=== PATIENT | male | born 1935 | race Caucasian/White ===

== ENCOUNTER 2016-09-16 10:42 | Inpatient (IN) | payer OTHER ==
--- NOTE | ~2016-09-16 | HP ---
History And Physical [place] [id number] [facility] [place]. [address] NAME: SANDRA GRAMAJO : 35 STATUS : ADM IN [facility]#: [id number] AGE: 80 ADM/REG DATE : 09/16/16 MR#: [id number] REPORT SERV DATE: 09/16/16 DICTATED BY: ABIGAIL QUIROZ DATE: 09/16/16 REPORT STATUS : Draft TRANSCRIBED BY: MODL DATE: 09/16/16 DATE OF ADMISSION: 09/16/2016 ADMISSION DIAGNOSES: Acute respiratory failure with septic shock and acute kidney injury and lactic acidosis. CHIEF COMPLAINT: Unable to obtain due to the patient's current medical status. HISTORY OF PRESENT ILLNESS: Mr. Gramajo is an 80-year-old gentleman with a past medical history of hypertension, who was brought to the emergency room and in the process was intubated. EMS was called to the house. At the time of my evaluation, family was not at the bedside. History was obtained from the emergency room physician and nursing staff. The patient was apparently found down, not breathing well and required mechanical ventilation. The patient was initially having an adequate blood pressure, however, he then had blood pressures in the 60s. The patient required central line insertion and infusion of normal saline to help with blood pressure support. He is cachectic. According to the son, per report, the patient has been this way for around two years. He has had adequate oral intake. The patient has a fungating mass of the left upper arm, which has been growing over the last eight months. This is a size of a tennis ball. The patient has been adamant that he does not want to have this evaluated and did not want to see doctors over the past while. According to the nursing staff, the patient has not wanted to see physicians in general and did not want to have workup. There was even per report discussion in the last several days as he has become ill that he did not want to go to the emergency room. PAST MEDICAL HISTORY: Hypertension. HOME MEDICATIONS: Vitamin C. ALLERGIES: NO KNOWN DRUG ALLERGIES. SOCIAL HISTORY: The patient currently lives at home, has a . Daughter currently has breast cancer. Son has been at the house and has been managing his father's care per report. He has done a very good job with the limitations according to the nursing staff that they heard that he has not wanted to see physicians, but has required care. The patient has lost the ability to walk and transfer on his own, for which the son and family have been helping him with his activities of daily living. FAMILY HISTORY: Unable to obtain currently. REVIEW OF SYSTEMS: Unable to obtain. PHYSICAL EXAMINATION: VITAL SIGNS: Currently hypothermic, blood pressure is in the 90s systolic, respiratory rate is set at 16, heart rate is around 132. GENERAL: The patient is cachectic, moving his upper extremities, mildly agitated. History And Physical [address] [address] NAME: SANDRA GRAMAJO : 35 STATUS : ADM IN [facility]#: [id number] AGE: 80 ADM/REG DATE : 09/16/16 MR#: [id number] REPORT SERV DATE: 09/16/16 DICTATED BY: ABIGAIL QUIROZ DATE: 09/16/16 REPORT STATUS : Draft TRANSCRIBED BY: MODBrittany DATE: 09/16/16 HEENT: No JVD is noted. Central line is inserted. PULMONARY: Clear to auscultation bilaterally. CARDIAC: Tachycardia, no murmurs. ABDOMEN: Abdomen is soft, nontender, nondistended. EXTREMITIES: The patient has a large fungating mass coming up from the left arm. He has other areas where there is wounds and a left lower extremity wound, which has dressings on. No sacral decubitus ulcers per nursing report. The wounds are quite small, other than the fungating mass and the one in the left lower lobe, which is about a quarter size. LABORATORY EXAMINATION: White blood cell count 15.8, hemoglobin 9.5, platelet count 314. INR 1.3. Procalcitonin 13.6. Chloride 113. Bicarbonate 19. Lactate 8.3, increasing to 8.7. Creatinine 1.63. Albumin 1.5. AST 56. BNP 1149. Troponin 0.06. TSH 52. Arterial blood gas shows a pH of 7.26, pCO2 of 32. IMAGING DATA: Chest x-ray shows blunting of the left costophrenic angle. 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 ASSESSMENT AND PLAN: Mr. Gramajo is an 80-year-old gentleman with a past medical history of clear failure to thrive, acute onset of septic shock, metabolic acidosis with kidney failure and lactic acidosis, findings of severe atherosclerotic disease of his aorta and most definitely coronary artery disease and probably congestive heart failure with an elevated BNP. He is also hypothyroid and currently has metabolic acidosis with shock and sepsis. 1. Acute hypoxic respiratory failure: The patient is currently on mechanical ventilation. We will continue CMV mode of mechanical ventilation. 2. Septic shock: Cultures have been drawn. The patient has received IV fluids and is currently having IV fluids at 100 mL an hour. The patient is on cefepime. 3. Acute kidney injury: The patient has a creatinine of 1.6, however, due to his level of protein malnourishment and loss of muscle mass, this is most definitely significant. No currently hyperkalemia, however, bicarbonate is dropping and we will start a bicarbonate drip. 4. Hypoalbuminemia: Most likely due to protein malnutrition. According to the family, the patient has good p.o. intake, concern of the possible neoplastic process in the arm with possible systemic disease. This is most likely chronic in nature. 5. Coronary artery disease: At this moment in time, cannot start a beta-rosa therapy. We will start aspirin and is on subcutaneous heparin. No benefit at this moment time for statin therapies. We will continue to check troponins. 6. Hypothyroidism: Currently have started IV Synthroid 125 mcg daily. 7. Lactic acidosis: The patient's blood pressure has been resuscitated. Lactate is worsening, concern of ischemic colitis is of great concern in this patient. We will continue to follow. 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 9. Prophylaxis: PPI, subcutaneous heparin. History And Physical [address] [address] NAME: SANDRA GRAMAJO Chantal : 35 STATUS : ADM IN [facility]#: [id number] AGE: 80 ADM/REG DATE : 09/16/16 MR#: [id number] REPORT SERV DATE: 09/16/16 DICTATED BY: ABIGAIL QUIROZ DATE: 09/16/16 REPORT STATUS : Draft TRANSCRIBED BY: MODL DATE: 09/16/16 10.Goals of care: Family meeting was conducted with the son and telephone call to the other son was done. At this moment in time, the patient remains in full code, further discussions regarding the patient's wishes and prognosis shall continue throughout the ICU stay. HFQ/MODL Abigail Quiroz MD / [id number] CC: MD Yamil Yee M.D.
--- NOTE | ~2016-09-16 | CN ---
Consultation Report [facility] [address] [facility] [place]. [address] NAME: SANDRA GRAMAJO : 35 STATUS : ADM IN [facility]#: [id number] AGE: 80 ADM/REG DATE : 09/16/16 MR#: [id number] REPORT SERV DATE: 09/21/16 DICTATED BY: J CARLOS WANG DATE: 09/20/16 REPORT STATUS : Draft TRANSCRIBED BY: MODBrittany DATE: 09/20/16 CONSULTATION DATE OF CONSULTATION: 09/20/2016 REASON FOR CONSULTATION: Evaluation for left lower extremity ischemia. BRIEF HISTORY: The patient is an 80-year-old gentleman with a past medical history significant for hypertension and tobacco abuse, who does not routinely seek medical care. He was in his usual state of health until he was found to have an altered mental status and abnormal breathing by his son, who lives with him. He came to the hospital for evaluation and treatment. Here, he was found to have acute kidney injury and respiratory failure. He was intubated and has been started on dopamine for bradycardia. He had lactic acidosis that was treated with resuscitation. With all this, his renal function has improved. Having said that, his left lower extremity was noted to be ischemic. I was consulted for evaluation and treatment. At baseline, the patient's son says that the patient does not routinely seek medical care. He has known about an arm mass on his right arm, but has ignored it because he does not like seeing doctors or coming to the hospital. He has been extremely weak and essentially nonambulatory for the past few months. He can get up to transfer, but often falls. PAST MEDICAL HISTORY: As above. SURGICAL HISTORY: Unknown. SOCIAL HISTORY: He has a strong history of tobacco abuse. He lives at home with his and son. FAMILY HISTORY: Significant for cancers. REVIEW OF SYSTEMS: A review of systems could not be performed as the patient is intubated and sedated. MEDICATIONS: Documented on the chart and were reviewed. ALLERGIES: DOCUMENTED ON THE CHART AND WERE REVIEWED. PHYSICAL EXAMINATION: VITAL SIGNS: Documented on the chart and were reviewed. GENERAL: The patient is sedated, in no apparent distress. HEAD AND NECK: Benign. HEART: Bradycardic and has a slightly irregular rhythm. LUNGS: Coarse. He is on the ventilator. Consultation Report [facility] [address] [place]. [address] NAME: SANDRA GRAMAJO : 35 STATUS : ADM IN PAT#: [id number] AGE: 80 ADM/REG DATE : 09/16/16 MR#: [id number] REPORT SERV DATE: 09/21/16 DICTATED BY: J CARLOS WANG DATE: 09/20/16 REPORT STATUS : Draft TRANSCRIBED BY: MODL DATE: 09/20/16 ABDOMEN: Benign. EXTREMITIES: Examination of the upper extremities reveals a normal complement of pulses without any significant edema or ischemic ulcerations. He has palpable femoral pulses. I do not appreciate more distal pulses. He has no signals in his left foot, but has biphasic signals in his right foot. His left foot is mottled and cold. It is actually mottled and profoundly ischemic to above the ankle. NEUROLOGIC: Evaluation is limited by his sedation. He spontaneously moves and opens his eyes. He really only moves his right arm. MUSCULOSKELETAL: Reveals no flexion contractures. DERMATOLOGIC: Reveals a firm fungating mass on his left arm. LABORATORY DATA: His laboratory investigations reveal a lactic acidosis that has resolved. He has no leukocytosis. He had an anemia that was treated. He had acute kidney injury, but his creatinine is down to 1.3 now. 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 He had an arterial duplex that shows no flow from his popliteal artery downward on the left lower extremity. His ankle brachial index on the right is almost normal. ASSESSMENT AND PLAN: Looks like this is a critically ill gentleman who has poor chronic state of health, has acute medical issues that may include a stroke, but certainly include acute kidney injury, anemia, and a lactic acidosis that are improving. He has a profoundly ischemic left lower extremity that is not salvageable. He has an overall poor prognosis, but he would need a left [id number] amputation if he were to survive this. I spent some time talking to the son today about all of this. It sounds like he is going to talk to his family about palliative care. I suspect that he is going to come back and say to avoid coding him for now. It sounds like they want to wait until the other family comes before pursuing further comfort measures. We will await their response. Please call me if they choose not to go down the route of palliative care and his medical status improves such that he could get an above the knee amputation. KINESIOLOGY PROFESSOR/MODL J Carlos Wang M.D. / [id number] CC: Abigail Quiroz MD
--- NOTE | ~2016-09-16 | CN ---
Consultation Report [place] [id number] [facility] [place]. [address] NAME: GLORIA GRAMAJO : 35 STATUS : ADM IN [facility]#: [id number] AGE: 80 ADM/REG DATE : 09/16/16 MR#: [id number] REPORT SERV DATE: 09/20/16 DICTATED BY: SHREYAS AGUIAR DATE: 09/20/16 REPORT STATUS : Draft TRANSCRIBED BY: MODL DATE: 09/20/16 CARDIOLOGY CONSULTATION DATE OF CONSULTATION: 09/20/2016 REQUESTING PROVIDER: Dr. Louie Salvador. HISTORY OF PRESENT ILLNESS: Mr. Gloria Gramajo is an 80-year-old man, who was brought to the emergency room on 09/16/2016. EMS was activated. The patient was found down, not breathing, required intubation mechanical ventilation. He was subsequently found to have sepsis and septic shock. 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 He was markedly cachectic. He has been in poor health for the last several years on report of the family. The patient had declined to have the mass on his arm evaluated. Apparently, he had declined going to the emergency room in the past. PAST MEDICAL HISTORY: Apparently, hypertension. ALLERGIES: NO ALLERGIES. MEDICATIONS: Takes vitamin C at home. SOCIAL HISTORY: Apparently lived with the son, but the patient declined medical intervention. FAMILY HISTORY: Unable to be obtained. REVIEW OF SYSTEMS: Unable to be obtained. On presentation, the patient found to have markedly abnormal TSH and 2 to [address] initially on Isuprel, then transitioned to dopamine. Cardiology is consulted this morning. He is currently intubated. There has been discussions with his family regarding level of care and anticipates that likely transition to palliative care after family sees the patient. PHYSICAL EXAMINATION: VITAL SIGNS: Blood pressure is 160/70, pulse is 61, respiratory rate is 10, temperature is 96.8. GENERAL: Sedated, moderately coarse breath sounds anterior. EYES: Sclerae anicteric, no arcus senilis. MOUTH: Oral mucosa moist, lips acyanotic. NECK: Jugular venous pressure normal, no carotid bruits. LUNGS: Clear to auscultation bilaterally, normal inspiratory effort. Consultation Report [place] [id number] [facility] [place]. [address] NAME: GLORIA GRAMAJO : 35 STATUS : ADM IN PAT#: [id number] AGE: 80 ADM/REG DATE : 09/16/16 MR#: [id number] REPORT SERV DATE: 09/20/16 DICTATED BY: SHREYAS AGUAIR DATE: 09/20/16 REPORT STATUS : Draft TRANSCRIBED BY: TENA DATE: 09/20/16 CARDIAC: Regular rhythm with occasional ectopy. ABDOMEN: Soft, nontender. EXTREMITIES: Cool with some red discoloration of the left lower leg. SKIN: Warm and dry. NEURO/PSYCH: Alert and oriented, nonfocal, mood appropriate. Sedated. DATA: Sodium is 148, potassium 3.2, albumin 1.6, creatinine 1.8. White count 6.2, hemoglobin 9.9, platelets 99. TSH was greater than 50. IMPRESSION: 1. 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 2. Respiratory failure. 3. Sepsis and lactic acidosis. 4. Thrombocytopenia. 5. Peripheral vascular disease. 6. Hypothyroidism. 7. Abnormal troponin, anticipate demand ischemia. RECOMMENDATIONS: Replace thyroid. Continue dopamine for now as code status discussions are continued to be had with the family. No plans for permanent pacemaker at the present time. DIOR/TENA Shreyas Aguiar M.D. / [id number] CC: Abigail Quiroz MD
--- NOTE | ~2016-09-16 | DS ---
Discharge Summary [facility] [address] [place]. [address] NAME: GLORIA GRAMAJO : 35 STATUS : DIS IN PAT#: [id number] AGE: 80 ADM/REG DATE : 09/16/16 MR#: [id number] REPORT SERV DATE: 10/06/16 DICTATED BY: ARGELIA ALVAREZ DATE: 10/05/16 REPORT STATUS : Draft TRANSCRIBED BY: MODL DATE: 10/05/16 ADMISSION DATE: 09/16/2016 DISCHARGE DATE: 09/23/2016 SUMMARY DATE OF : 09/23/2016 BRIEF HISTORY OF PRESENT ILLNESS: Gloria Gramajo is an 80-year-old gentleman admitted by Dr. Quiroz on 09/16/2016 with acute hypoxemic respiratory failure, septic shock, and acute renal failure. He was found down with hypotension and hypoxemia. EMS was called to the house. He was intubated. He was found to have a large mass on his upper arm on the left, which was roughly the size of a tennis ball. Evidently patient was quite resistant to seeing physicians and had never wanted to have this worked up. Please see Dr. Quiroz's admitting history and physical for additional details. HOSPITAL COURSE: The patient was rounded on by Dr. Quiroz and Dr. Salvador for the first week of hospitalization please see their detailed handwritten progress notes for additional details of most of his hospital course. I assumed his care on 09/21/2016 until his on 09/23/2016. He had been seen by Dr. Wang for a cold left leg on 09/21/2016 and advised that it was not salvageable in light of his poor prognosis. He would recommend against proceeding with left above the knee amputation and signed off pending family deliberation. He was also seen by Dr. 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 He recommended thyroid replacement and ongoing dopamine in the setting of ongoing palliative care discussions with the patient's family. He recommended against permanent pacemaker placement in light of moving toward comfort care. Upon assuming care for Mr. Gramajo on 09/21/2016, I arranged a meeting with his family and we met with his and his son who was in town from [place] as well as his daughter who is currently undergoing chemotherapy in addition to his grandchildren. A detailed systems based review of his current status was conducted and they did verbalize their understanding with his overall poor prognosis in light of the fact that his daughter was undergoing chemotherapy the following day, the family requested to defer withdrawal of care and tell later in the week such that they could attend her appointments with her. Ultimately, the family gathered on 09/23/2016 and the patient was extubated to comfort care with morphine and Ativan and glycopyrrolate for relief of dyspnea and pain. He in the evening with both of his children at the bedside. All of their questions were answered and certificate was completed by me. The time of was 1820. The patient's remains were released to [facility] and autopsy was declined by the family. Please see additional details in the daily progress notes as well as dictated consultation reports and H and P. BOB/TENA [place] Discharge Summary [address] [address] NAME: KENDRA GRAMAJOKWAKU Cornejo : 35 STATUS : DIS IN PAT#: [id number] AGE: 80 ADM/REG DATE : 09/16/16 MR#: [id number] REPORT SERV DATE: 10/06/16 DICTATED BY: ARGELIA ALVAREZ DATE: 10/05/16 REPORT STATUS : Draft TRANSCRIBED BY: MODBrittany DATE: 10/05/16 MD Tram / [id number] CC: Abigail Quiroz MD
[2016-09-16 11:15] LABS: ALLENS TEST Pos; BE (BASE EXCESS) -12.1 MEQ/L (0 +/- 2.5); CARBOXYHEMOGLOBIN 1.2 % (0-3); HCO3 (ACTUAL BICARBONATE) 13.8 MEQ/L (23-27); HEMOBLOGIN CONTENT 9.8 G/DL (14-18); INSTRUMENT SERIAL # 8087; METHEMOGLOBIN 0.3 % (0-3); MODE CMV; OPERATOR ID 14904~00; PCO2 (CO2 TENSION) 32 MMHG (35-45); SAMPLE Arterial; TIDAL VOLUME 600 ML; pH 7.26 (7.37-7.43)
[2016-09-16 11:23] LABS: BASOPHILS 0.1 %; BASOPHILS ABSOLUTE 0.01 10/3/uL (0.0-0.16); EOSINOPHILS 0.1 %; EOSINOPHILS ABSOLUTE 0.01 10/3/uL (0.0-0.53); HEMATOCRIT 33.7 % (40.0-51.0); HEMOGLOBIN 9.5 g/dL (13.6-17.8); IMMATURE GRANULOCYTES 0.3 %; IMMATURE GRANULOCYTES ABSOLUTE 0.04 10/3/uL (0.0-0.11); LYMPHOCYTES 6.5 %; LYMPHOCYTES ABSOLUTE 1.02 10/3/uL (0.67-4.30); MEAN CORPUS HGB CONC 28.2 g/dL (32.0-36.0); MEAN CORPUSCULAR HEMOGLOB 21.8 pg (26.0-34.0); MEAN CORPUSCULAR VOLUME 77.3 fL (80-100); MEAN PLATELET VOLUME 9.5 fL (9.2-13.0); MONOCYTES 6.4 %; MONOCYTES ABSOLUTE 1.01 10/3/uL (0.21-1.20); NEUTROPHILS 86.6 %; NEUTROPHILS ABSOLUTE 13.67 10/3/uL (2.02-8.40); PLATELET COUNT 314 10/3/uL (150-400); RBC DISTRIBUTION WIDTH 23.3 % (12.0-16.0); RED CELL COUNT 4.36 10/6/uL (4.7-6.1); WHITE BLOOD CELLS 15.8 10/3/uL (4.5-10.5)
[2016-09-16 11:24] LABS: MANUAL DIFF NO %
[2016-09-16] MEDS ORDERED: OTC VITAMIN C PO (11:24)
[2016-09-16 11:30] LABS: INTERNATIONAL NORMAL RATI 1.3 UNITS (-); PARTIAL THROMBO TIME 24.3 SEC (22.5-37.2); PROTIME (NOT ORD) 15.8 SEC (12.0-14.5)
[2016-09-16 11:42] LABS: LACTATE 8.3 MMOL/L (0.3-2.4)
[2016-09-16 11:48] LABS: HYPOCHROMIA 3+ (>30/OIF) (0-2/OIF); PLATELET ESTIMATE ADQ (ADEQUATE); RBC MORPHOLOGY ABN (NORMAL)
[2016-09-16 11:49] LABS: A/G RATIO 0.4 (0.7-1.9); ALBUMIN 1.5 G/DL (3.5-5.0); ALKALINE PHOSPHATASE 120 U/L (45-117); BUN (BLOOD UREA NITROGEN) 16 MG/DL (6-23); CALCIUM, SERUM 9.6 MG/DL (8.5-10.4); CHLORIDE, SERUM 113 MMOL/L (96-112); CO2 (CARBON DIOXIDE) 19 MMOL/L (24-34); CREATININE 1.64 MG/DL (0.70-1.30); GFR AFRICAN AMERICAN 45 ML/MIN (>=60); GFR NON AFRICAN AMERICAN 39 ML/MIN (>=60); GLOBULIN 4.1 G/DL (2.5-4.1); GLUCOSE, SERUM 148 MG/DL (60-99); SGPT(ALT) 35 U/L (5-65); SODIUM, SERUM 148 MMOL/L (135-148); TOTAL BILIRUBIN 0.4 MG/DL (0-1.2); TOTAL PROTEIN 5.6 G/DL (6.0-8.5)
[2016-09-16 11:54] LABS: SGOT(AST) 56 U/L (5-40); TROPONIN I 0.06 NG/ML (<0.05)
[2016-09-16 12:30] LABS: PROCALCITONIN 13.61 ng/mL (<0.5)
[2016-09-16 13:08] LABS: ASCORBIC ACID (UR NOT ORDER) 40 (NEG); BILIRUBIN, URINE NEGATIVE (NEG); ER URINALYSIS TAT 0 Hrs 24 Mins; KETONE, URINE NEGATIVE (NEG); LEUKOCYTE ESTERASE(NOT OR NEG (NEG); NITRITE (URINE) NEG (NEG); WBC (NOT ORDERED) (RFLEX) 15 (0-5)
[2016-09-16 16:34] LABS: A/G RATIO 0.4 (0.7-1.9); ALBUMIN 1.5 G/DL (3.5-5.0); ALKALINE PHOSPHATASE 115 U/L (45-117); BUN (BLOOD UREA NITROGEN) 17 MG/DL (6-23); CALCIUM, SERUM 9.8 MG/DL (8.5-10.4); CHLORIDE, SERUM 116 MMOL/L (96-112); CO2 (CARBON DIOXIDE) 18 MMOL/L (24-34); CREATININE 1.63 MG/DL (0.70-1.30); GFR AFRICAN AMERICAN 45 ML/MIN (>=60); GFR NON AFRICAN AMERICAN 39 ML/MIN (>=60); GLUCOSE, SERUM 149 MG/DL (60-99); POTASSIUM, SERUM 3.9 MMOL/L (3.5-5.3); PREALBUMIN 9.6 MG/DL (17.0-43.0); SGOT(AST) 79 U/L (5-40); SGPT(ALT) 51 U/L (5-65); SODIUM, SERUM 148 MMOL/L (135-148); TOTAL BILIRUBIN 0.3 MG/DL (0-1.2); TOTAL PROTEIN 5.5 G/DL (6.0-8.5)
[2016-09-16 16:36] LABS: TROPONIN I 0.16 NG/ML (<0.05)
[2016-09-16 22:44] LABS: BUN (BLOOD UREA NITROGEN) 20 MG/DL (6-23); CALCIUM, SERUM 9.5 MG/DL (8.5-10.4); CHLORIDE, SERUM 115 MMOL/L (96-112); CO2 (CARBON DIOXIDE) 19 MMOL/L (24-34); CREATININE 1.71 MG/DL (0.70-1.30); GFR AFRICAN AMERICAN 43 ML/MIN (>=60); GFR NON AFRICAN AMERICAN 37 ML/MIN (>=60); GLUCOSE, SERUM 124 MG/DL (60-99); POTASSIUM, SERUM 3.9 MMOL/L (3.5-5.3); SODIUM, SERUM 148 MMOL/L (135-148); TROPONIN I 0.18 NG/ML (<0.05)
[2016-09-17 04:07] LABS: ALLENS TEST Pos; BE (BASE EXCESS) -4.3 MEQ/L (0 +/- 2.5); CARBOXYHEMOGLOBIN 0.1 % (0-3); HCO3 (ACTUAL BICARBONATE) 19.3 MEQ/L (23-27); HEMOBLOGIN CONTENT 8.6 G/DL (14-18); INSTRUMENT SERIAL # 35151; METHEMOGLOBIN 0.6 % (0-3); MODE CMV; O2 CONTENT 11.6 VOL% (18-24); OPERATOR ID 23712; PCO2 (CO2 TENSION) 30 MMHG (35-45); PO2 (O2 TENSION) 83 MMHG (79-93); SAMPLE Arterial; TIDAL VOLUME 600 ML; pH 7.43 (7.37-7.43)
[2016-09-17 05:23] LABS: BUN (BLOOD UREA NITROGEN) 25 MG/DL (6-23); CALCIUM, SERUM 8.7 MG/DL (8.5-10.4); CHLORIDE, SERUM 114 MMOL/L (96-112); CO2 (CARBON DIOXIDE) 20 MMOL/L (24-34); GFR AFRICAN AMERICAN 40 ML/MIN (>=60); GFR NON AFRICAN AMERICAN 35 ML/MIN (>=60); GLUCOSE, SERUM 137 MG/DL (60-99); PHOSPHORUS, SERUM 3.5 MG/DL (2.5-4.5); POTASSIUM, SERUM 3.6 MMOL/L (3.5-5.3); SODIUM, SERUM 147 MMOL/L (135-148)
[2016-09-17 07:36] LABS: BASOPHILS 0 %; EOSINOPHILS 0.1 %; EOSINOPHILS ABSOLUTE 0.01 10/3/uL (0.0-0.53); HEMOGLOBIN 7.9 g/dL (13.6-17.8); IMMATURE GRANULOCYTES 0.2 %; IMMATURE GRANULOCYTES ABSOLUTE 0.03 10/3/uL (0.0-0.11); LYMPHOCYTES ABSOLUTE 1.03 10/3/uL (0.67-4.30); MEAN CORPUS HGB CONC 29.6 g/dL (32.0-36.0); MEAN CORPUSCULAR HEMOGLOB 21.8 pg (26.0-34.0); MEAN PLATELET VOLUME 9.5 fL (9.2-13.0); MONOCYTES 4.2 %; MONOCYTES ABSOLUTE 0.54 10/3/uL (0.21-1.20); NEUTROPHILS 87.5 %; NEUTROPHILS ABSOLUTE 11.33 10/3/uL (2.02-8.40); RBC DISTRIBUTION WIDTH 23.1 % (12.0-16.0); RED CELL COUNT 3.62 10/6/uL (4.7-6.1); WHITE BLOOD CELLS 12.9 10/3/uL (4.5-10.5)
[2016-09-17 07:37] LABS: HEMATOCRIT 26.7 % (40.0-51.0); MANUAL DIFF NO %; MEAN CORPUSCULAR VOLUME 73.8 fL (80-100); PLATELET COUNT 166 10/3/uL (150-400)
[2016-09-17 08:04] LABS: MICROCYTES 1+ (5-10/OIF) (0-5/OIF); PLATELET ESTIMATE ADQ (ADEQUATE); RBC MORPHOLOGY ABN (NORMAL)
[2016-09-17 08:05] LABS: BURR CELLS 1+ (3-10/OIF) (0-2/OIF); OVALOCYTES 1+ (3-10/OIF) (0-2/OIF)
[2016-09-18 03:50] LABS: BE (BASE EXCESS) -0.1 MEQ/L (0 +/- 2.5); CARBOXYHEMOGLOBIN 2.2 % (0-3); HCO3 (ACTUAL BICARBONATE) 22.8 MEQ/L (23-27); HEMOBLOGIN CONTENT 5.9 G/DL (14-18); INSTRUMENT SERIAL # 8087; METHEMOGLOBIN 0.4 % (0-3); O2 CONTENT 8.1 VOL% (18-24); PCO2 (CO2 TENSION) 29 MMHG (35-45); PO2 (O2 TENSION) 100 MMHG (79-93); pH 7.52 (7.37-7.43)
[2016-09-18 03:51] LABS: ALLENS TEST Pos; MODE CMV; OPERATOR ID 17589; SAMPLE Arterial; TIDAL VOLUME 600 ML
[2016-09-18 06:17] LABS: BASOPHILS 0 %; EOSINOPHILS 0 %; IMMATURE GRANULOCYTES 0.3 %; IMMATURE GRANULOCYTES ABSOLUTE 0.01 10/3/uL (0.0-0.11); LYMPHOCYTES 11.4 %; LYMPHOCYTES ABSOLUTE 0.37 10/3/uL (0.67-4.30); MEAN CORPUSCULAR HEMOGLOB 21.9 pg (26.0-34.0); MEAN CORPUSCULAR VOLUME 72.9 fL (80-100); MEAN PLATELET VOLUME 8.9 fL (9.2-13.0); MONOCYTES 6.8 %; MONOCYTES ABSOLUTE 0.22 10/3/uL (0.21-1.20); NEUTROPHILS 81.5 %; NEUTROPHILS ABSOLUTE 2.64 10/3/uL (2.02-8.40); RBC DISTRIBUTION WIDTH 23.2 % (12.0-16.0)
[2016-09-18 06:21] LABS: HEMOGLOBIN 5.4 g/dL (13.6-17.8); PLATELET COUNT 106 10/3/uL (150-400); RED CELL COUNT 2.47 10/6/uL (4.7-6.1); WHITE BLOOD CELLS 3.2 10/3/uL (4.5-10.5)
[2016-09-18 06:24] LABS: MANUAL DIFF NO %
[2016-09-18 06:44] LABS: ALBUMIN 1.7 G/DL (3.5-5.0); CALCIUM, SERUM 8.4 MG/DL (8.5-10.4); CHLORIDE, SERUM 112 MMOL/L (96-112); CO2 (CARBON DIOXIDE) 24 MMOL/L (24-34); CREATININE 1.73 MG/DL (0.70-1.30); GFR AFRICAN AMERICAN 42 ML/MIN (>=60); GFR NON AFRICAN AMERICAN 36 ML/MIN (>=60); SGOT(AST) 65 U/L (5-40); SGPT(ALT) 50 U/L (5-65); SODIUM, SERUM 148 MMOL/L (135-148); TOTAL BILIRUBIN 0.3 MG/DL (0-1.2)
[2016-09-18 06:54] LABS: A/G RATIO 0.7 (0.7-1.9); ALKALINE PHOSPHATASE 57 U/L (45-117); BUN (BLOOD UREA NITROGEN) 29 MG/DL (6-23); GLOBULIN 2.6 G/DL (2.5-4.1); GLUCOSE, SERUM 95 MG/DL (60-99); PHOSPHORUS, SERUM 2.4 MG/DL (2.5-4.5); POTASSIUM, SERUM 2.4 MMOL/L (3.5-5.3); TOTAL PROTEIN 4.3 G/DL (6.0-8.5)
[2016-09-18 07:23] LABS: PLATELET ESTIMATE SLT DEC (ADEQUATE)
[2016-09-18 11:47] LABS: CK-MB 10.3 NG/ML; CPK 268 U/L (0-200)
[2016-09-18 11:48] LABS: CKMB INDEX (NOT ORD) 3.8; TROPONIN I 0.12 NG/ML (<0.05)
[2016-09-18 19:40] LABS: BASOPHILS 0 %; EOSINOPHILS 0 %; HEMATOCRIT 30.3 % (40.0-51.0); HEMOGLOBIN 9.8 g/dL (13.6-17.8); IMMATURE GRANULOCYTES 0.2 %; IMMATURE GRANULOCYTES ABSOLUTE 0.01 10/3/uL (0.0-0.11); LYMPHOCYTES 10.2 %; LYMPHOCYTES ABSOLUTE 0.54 10/3/uL (0.67-4.30); MEAN CORPUSCULAR VOLUME 75.6 fL (80-100); MEAN PLATELET VOLUME 9.6 fL (9.2-13.0); MONOCYTES 7.7 %; MONOCYTES ABSOLUTE 0.41 10/3/uL (0.21-1.20); NEUTROPHILS 81.9 %; NEUTROPHILS ABSOLUTE 4.34 10/3/uL (2.02-8.40); PLATELET COUNT 107 10/3/uL (150-400); RBC DISTRIBUTION WIDTH 20.2 % (12.0-16.0); RED CELL COUNT 4.01 10/6/uL (4.7-6.1); WHITE BLOOD CELLS 5.3 10/3/uL (4.5-10.5)
[2016-09-18 19:41] LABS: MANUAL DIFF NO %; MEAN CORPUS HGB CONC 32.3 g/dL (32.0-36.0); MEAN CORPUSCULAR HEMOGLOB 24.4 pg (26.0-34.0)
[2016-09-18 19:52] LABS: BUN (BLOOD UREA NITROGEN) 29 MG/DL (6-23); CALCIUM, SERUM 8.4 MG/DL (8.5-10.4); CHLORIDE, SERUM 113 MMOL/L (96-112); CO2 (CARBON DIOXIDE) 26 MMOL/L (24-34); CREATININE 1.73 MG/DL (0.70-1.30); GFR AFRICAN AMERICAN 42 ML/MIN (>=60); GFR NON AFRICAN AMERICAN 36 ML/MIN (>=60); GLUCOSE, SERUM 105 MG/DL (60-99); SODIUM, SERUM 148 MMOL/L (135-148)
[2016-09-18 19:53] LABS: POTASSIUM, SERUM 3.2 MMOL/L (3.5-5.3)
[2016-09-19 02:29] LABS: HEMATOCRIT 31.5 % (40.0-51.0); HEMOGLOBIN 11.2 g/dL (13.6-17.8); MEAN CORPUSCULAR VOLUME 75.9 fL (80-100); MEAN PLATELET VOLUME 9.8 fL (9.2-13.0); PLATELET COUNT 120 10/3/uL (150-400); RBC DISTRIBUTION WIDTH 20.2 % (12.0-16.0); RED CELL COUNT 4.15 10/6/uL (4.7-6.1); WHITE BLOOD CELLS 7.3 10/3/uL (4.5-10.5)
[2016-09-19 02:31] LABS: MANUAL DIFF YES %; MEAN CORPUS HGB CONC 35.6 g/dL (32.0-36.0)
[2016-09-19 02:43] LABS: ALBUMIN 1.6 G/DL (3.5-5.0); BUN (BLOOD UREA NITROGEN) 28 MG/DL (6-23); CALCIUM, SERUM 8.7 MG/DL (8.5-10.4); CHLORIDE, SERUM 111 MMOL/L (96-112); CO2 (CARBON DIOXIDE) 28 MMOL/L (24-34); CREATININE 1.84 MG/DL (0.70-1.30); GFR AFRICAN AMERICAN 39 ML/MIN (>=60); GFR NON AFRICAN AMERICAN 34 ML/MIN (>=60); GLUCOSE, SERUM 147 MG/DL (60-99); PHOSPHORUS, SERUM 2.4 MG/DL (2.5-4.5); POTASSIUM, SERUM 3.8 MMOL/L (3.5-5.3); SGOT(AST) 74 U/L (5-40); SGPT(ALT) 66 U/L (5-65); SODIUM, SERUM 148 MMOL/L (135-148); TOTAL BILIRUBIN 0.3 MG/DL (0-1.2); TOTAL PROTEIN 4.9 G/DL (6.0-8.5)
[2016-09-19 02:44] LABS: A/G RATIO 0.5 (0.7-1.9); ALKALINE PHOSPHATASE 77 U/L (45-117); GLOBULIN 3.3 G/DL (2.5-4.1)
[2016-09-19 03:06] LABS: BAND NEUTROPHILS 21 %; LYMPHOCYTES 10 %; LYMPHOCYTES ABSOLUTE (CALC) 0.73 10/3/uL (0.67-4.30); MONOCYTES 2 %; MONOCYTES ABSOLUTE (CALC) 0.15 10/3/uL (0.21-1.20); NEUTROPHILS ABSOLUTE (CALC) 6.42 10/3/uL (2.02-8.40); SEGMENTED NEUTROPHIL (0) 67 %; TOTAL NUCLEATED CELLS 100
[2016-09-19 03:07] LABS: MICROCYTES 1+ (5-10/OIF) (0-5/OIF); PLATELET ESTIMATE SLT DEC (ADEQUATE); RBC MORPHOLOGY ABN (NORMAL)
[2016-09-19 04:14] LABS: ALLENS TEST Pos; BE (BASE EXCESS) -1.3 MEQ/L (0 +/- 2.5); CARBOXYHEMOGLOBIN 0.3 % (0-3); HCO3 (ACTUAL BICARBONATE) 21.7 MEQ/L (23-27); INSTRUMENT SERIAL # 35151; METHEMOGLOBIN 0.8 % (0-3); MODE CMV; O2 CONTENT 15.1 VOL% (18-24); OPERATOR ID 33214; PCO2 (CO2 TENSION) 31 MMHG (35-45); PO2 (O2 TENSION) 108 MMHG (79-93); SAMPLE Arterial; TIDAL VOLUME 600 ML; pH 7.47 (7.37-7.43)
[2016-09-20 04:13] LABS: BE (BASE EXCESS) 5.8 MEQ/L (0 +/- 2.5); CARBOXYHEMOGLOBIN 0.3 % (0-3); HCO3 (ACTUAL BICARBONATE) 29.4 MEQ/L (23-27); HEMOBLOGIN CONTENT 10.7 G/DL (14-18); INSTRUMENT SERIAL # 35151; METHEMOGLOBIN 0.7 % (0-3); MODE CMV; O2 CONTENT 14.5 VOL% (18-24); OPERATOR ID 30013; PCO2 (CO2 TENSION) 39 MMHG (35-45); PO2 (O2 TENSION) 83 MMHG (79-93); SAMPLE Arterial; TIDAL VOLUME 600 ML
[2016-09-20 05:50] LABS: BASOPHILS 0.2 %; BASOPHILS ABSOLUTE 0.01 10/3/uL (0.0-0.16); EOSINOPHILS 0.3 %; EOSINOPHILS ABSOLUTE 0.02 10/3/uL (0.0-0.53); HEMOGLOBIN 9.9 g/dL (13.6-17.8); IMMATURE GRANULOCYTES 0.5 %; IMMATURE GRANULOCYTES ABSOLUTE 0.03 10/3/uL (0.0-0.11); LYMPHOCYTES 10.6 %; LYMPHOCYTES ABSOLUTE 0.66 10/3/uL (0.67-4.30); MEAN CORPUSCULAR VOLUME 75.1 fL (80-100); MONOCYTES 7.9 %; MONOCYTES ABSOLUTE 0.49 10/3/uL (0.21-1.20); NEUTROPHILS 80.5 %; NEUTROPHILS ABSOLUTE 5.01 10/3/uL (2.02-8.40); PLATELET COUNT 99 10/3/uL (150-400); RBC DISTRIBUTION WIDTH 20.6 % (12.0-16.0); RED CELL COUNT 4.13 10/6/uL (4.7-6.1); WHITE BLOOD CELLS 6.2 10/3/uL (4.5-10.5)
[2016-09-20 05:54] LABS: MANUAL DIFF NO %; MEAN CORPUS HGB CONC 31.9 g/dL (32.0-36.0)
[2016-09-20 06:18] LABS: BUN (BLOOD UREA NITROGEN) 25 MG/DL (6-23); CALCIUM, SERUM 8.7 MG/DL (8.5-10.4); CHLORIDE, SERUM 109 MMOL/L (96-112); CO2 (CARBON DIOXIDE) 28 MMOL/L (24-34); GLUCOSE, SERUM 119 MG/DL (60-99); PHOSPHORUS, SERUM 2.6 MG/DL (2.5-4.5); POTASSIUM, SERUM 3.5 MMOL/L (3.5-5.3); SGPT(ALT) 45 U/L (5-65); SODIUM, SERUM 147 MMOL/L (135-148); TOTAL BILIRUBIN 0.4 MG/DL (0-1.2); TOTAL PROTEIN 4.7 G/DL (6.0-8.5)
[2016-09-20 06:19] LABS: ALBUMIN 2.5 G/DL (3.5-5.0); CREATININE 1.31 MG/DL (0.70-1.30); GFR AFRICAN AMERICAN 59 ML/MIN (>=60); GFR NON AFRICAN AMERICAN 51 ML/MIN (>=60)
[2016-09-20 06:20] LABS: A/G RATIO 1.1 (0.7-1.9); ALKALINE PHOSPHATASE 65 U/L (45-117); GLOBULIN 2.2 G/DL (2.5-4.1); SGOT(AST) 57 U/L (5-40)
[2016-09-20 06:40] LABS: PLATELET ESTIMATE DEC (ADEQUATE)
[2016-09-20 06:41] LABS: ANISOCYTOSIS 1+ (5-10/OIF) (0-5/OIF); HYPOCHROMIA 1+ (3-10/OIF) (0-2/OIF); MICROCYTES 1+ (5-10/OIF) (0-5/OIF)
[2016-09-21 04:03] LABS: BASOPHILS 0 %; EOSINOPHILS 0.6 %; EOSINOPHILS ABSOLUTE 0.05 10/3/uL (0.0-0.53); HEMATOCRIT 35.9 % (40.0-51.0); HEMOGLOBIN 11.3 g/dL (13.6-17.8); IMMATURE GRANULOCYTES 0.5 %; IMMATURE GRANULOCYTES ABSOLUTE 0.04 10/3/uL (0.0-0.11); LYMPHOCYTES 10.5 %; LYMPHOCYTES ABSOLUTE 0.82 10/3/uL (0.67-4.30); MEAN CORPUS HGB CONC 31.5 g/dL (32.0-36.0); MEAN CORPUSCULAR HEMOGLOB 24.1 pg (26.0-34.0); MEAN CORPUSCULAR VOLUME 76.5 fL (80-100); MONOCYTES 8.5 %; MONOCYTES ABSOLUTE 0.67 10/3/uL (0.21-1.20); NEUTROPHILS 79.9 %; NEUTROPHILS ABSOLUTE 6.26 10/3/uL (2.02-8.40); PLATELET COUNT 101 10/3/uL (150-400); RBC DISTRIBUTION WIDTH 21.2 % (12.0-16.0); RED CELL COUNT 4.69 10/6/uL (4.7-6.1); WHITE BLOOD CELLS 7.8 10/3/uL (4.5-10.5)
[2016-09-21 04:04] LABS: MANUAL DIFF NO %
[2016-09-21 04:06] LABS: BUN (BLOOD UREA NITROGEN) 23 MG/DL (6-23); CALCIUM, SERUM 9.2 MG/DL (8.5-10.4); CHLORIDE, SERUM 113 MMOL/L (96-112); CO2 (CARBON DIOXIDE) 25 MMOL/L (24-34); CREATININE 1.07 MG/DL (0.70-1.30); GFR AFRICAN AMERICAN 76 ML/MIN (>=60); GFR NON AFRICAN AMERICAN 65 ML/MIN (>=60); GLUCOSE, SERUM 132 MG/DL (60-99); PHOSPHORUS, SERUM 2.3 MG/DL (2.5-4.5); SODIUM, SERUM 147 MMOL/L (135-148)
[2016-09-21 04:08] LABS: POTASSIUM, SERUM 3.7 MMOL/L (3.5-5.3)
[2016-09-21 05:40] LABS: GIANT PLATELET FEW; PLATELET ESTIMATE SLT DEC (ADEQUATE)
[2016-09-21 16:40] LABS: ALBUMIN 1.8 G/DL (3.5-5.0); BUN (BLOOD UREA NITROGEN) 26 MG/DL (6-23); CALCIUM, SERUM 9.2 MG/DL (8.5-10.4); CHLORIDE, SERUM 112 MMOL/L (96-112); CO2 (CARBON DIOXIDE) 26 MMOL/L (24-34); CREATININE 1.19 MG/DL (0.70-1.30); GFR AFRICAN AMERICAN 66 ML/MIN (>=60); GFR NON AFRICAN AMERICAN 57 ML/MIN (>=60); GLUCOSE, SERUM 199 MG/DL (60-99); PHOSPHORUS, SERUM 3.1 MG/DL (2.5-4.5); POTASSIUM, SERUM 3.7 MMOL/L (3.5-5.3); SODIUM, SERUM 146 MMOL/L (135-148)
[2016-09-22 04:39] LABS: ALBUMIN 1.7 G/DL (3.5-5.0); CALCIUM, SERUM 8.9 MG/DL (8.5-10.4); CHLORIDE, SERUM 109 MMOL/L (96-112); CO2 (CARBON DIOXIDE) 25 MMOL/L (24-34); CREATININE 1.29 MG/DL (0.70-1.30); FREE T4 1.36 NG/DL (0.76-1.46); GFR AFRICAN AMERICAN 60 ML/MIN (>=60); GFR NON AFRICAN AMERICAN 52 ML/MIN (>=60); GLUCOSE, SERUM 204 MG/DL (60-99); POTASSIUM, SERUM 3.7 MMOL/L (3.5-5.3); SODIUM, SERUM 143 MMOL/L (135-148)
[2016-09-22 04:57] LABS: BUN (BLOOD UREA NITROGEN) 31 MG/DL (6-23)
[2016-09-22 07:09] LABS: BASOPHILS 0.1 %; BASOPHILS ABSOLUTE 0.01 10/3/uL (0.0-0.16); EOSINOPHILS 0.6 %; EOSINOPHILS ABSOLUTE 0.05 10/3/uL (0.0-0.53); HEMATOCRIT 33.7 % (40.0-51.0); HEMOGLOBIN 10.6 g/dL (13.6-17.8); IMMATURE GRANULOCYTES 0.5 %; IMMATURE GRANULOCYTES ABSOLUTE 0.04 10/3/uL (0.0-0.11); LYMPHOCYTES 7.8 %; LYMPHOCYTES ABSOLUTE 0.66 10/3/uL (0.67-4.30); MEAN CORPUS HGB CONC 31.5 g/dL (32.0-36.0); MEAN CORPUSCULAR HEMOGLOB 24.4 pg (26.0-34.0); MEAN CORPUSCULAR VOLUME 77.5 fL (80-100); MONOCYTES 8.5 %; MONOCYTES ABSOLUTE 0.72 10/3/uL (0.21-1.20); NEUTROPHILS 82.5 %; NEUTROPHILS ABSOLUTE 6.95 10/3/uL (2.02-8.40); PLATELET COUNT 100 10/3/uL (150-400); RBC DISTRIBUTION WIDTH 21.1 % (12.0-16.0); RED CELL COUNT 4.35 10/6/uL (4.7-6.1); WHITE BLOOD CELLS 8.4 10/3/uL (4.5-10.5)
[2016-09-22 07:10] LABS: MANUAL DIFF NO %
[2016-09-22 08:34] LABS: PLATELET ESTIMATE DEC (ADEQUATE)
[2016-09-22 08:35] LABS: ANISOCYTOSIS 1+ (5-10/OIF) (0-5/OIF); POLYCHROMASIA 1+ (2-5/OIF) (0-1/OIF); TOXIC GRANULATION 1+
[2016-09-23 05:39] LABS: ALBUMIN 1.5 G/DL (3.5-5.0); CALCIUM, SERUM 9.8 MG/DL (8.5-10.4); CHLORIDE, SERUM 109 MMOL/L (96-112); CO2 (CARBON DIOXIDE) 25 MMOL/L (24-34); PHOSPHORUS, SERUM 3.9 MG/DL (2.5-4.5); POTASSIUM, SERUM 4.1 MMOL/L (3.5-5.3); SODIUM, SERUM 145 MMOL/L (135-148)
[2016-09-23 05:41] LABS: BUN (BLOOD UREA NITROGEN) 41 MG/DL (6-23); CREATININE 1.83 MG/DL (0.70-1.30); GFR AFRICAN AMERICAN 40 ML/MIN (>=60); GFR NON AFRICAN AMERICAN 34 ML/MIN (>=60); GLUCOSE, SERUM 137 MG/DL (60-99)
[2016-09-23 05:48] LABS: BASOPHILS 0.1 %; BASOPHILS ABSOLUTE 0.01 10/3/uL (0.0-0.16); EOSINOPHILS 0.1 %; EOSINOPHILS ABSOLUTE 0.01 10/3/uL (0.0-0.53); HEMATOCRIT 31.1 % (40.0-51.0); HEMOGLOBIN 9.7 g/dL (13.6-17.8); IMMATURE GRANULOCYTES 0.5 %; IMMATURE GRANULOCYTES ABSOLUTE 0.06 10/3/uL (0.0-0.11); LYMPHOCYTES 4.7 %; LYMPHOCYTES ABSOLUTE 0.58 10/3/uL (0.67-4.30); MEAN CORPUS HGB CONC 31.2 g/dL (32.0-36.0); MEAN CORPUSCULAR HEMOGLOB 23.9 pg (26.0-34.0); MEAN CORPUSCULAR VOLUME 76.6 fL (80-100); MONOCYTES 6.8 %; MONOCYTES ABSOLUTE 0.85 10/3/uL (0.21-1.20); NEUTROPHILS 87.8 %; NEUTROPHILS ABSOLUTE 10.95 10/3/uL (2.02-8.40); PLATELET COUNT 111 10/3/uL (150-400); RBC DISTRIBUTION WIDTH 21.2 % (12.0-16.0); RED CELL COUNT 4.06 10/6/uL (4.7-6.1)
[2016-09-23 05:52] LABS: MANUAL DIFF NO %; WHITE BLOOD CELLS 12.5 10/3/uL (4.5-10.5)
[2016-09-23 06:03] LABS: PLATELET ESTIMATE DEC (ADEQUATE)
[2016-09-23 06:04] LABS: RBC MORPHOLOGY NORM (NORMAL)
== END 2016-09-23 21:05 | disposition expired | DRG 871 ==
LOC: ER 10:42 → CCU 11:02
PROVIDERS: Hospitalist; Internal Medicine; Internal Medicine Critical Care Medicine
PROC: 0H9CXZX Drainage of Left Upper Arm Skin, External Approach, Diagnostic (ICD-10-PCS; principal; 2016-09-16)
PROC: 5A1945Z Respiratory Ventilation, 24-96 Consecutive Hours (ICD-10-PCS; 2016-09-16)
PROC: 0BH17EZ Insertion of Endotracheal Airway into Trachea, Via Natural or Artificial Opening (ICD-10-PCS; 2016-09-16)
PROC: 05HM33Z Insertion of Infusion Device into Right Internal Jugular Vein, Percutaneous Approach (ICD-10-PCS; 2016-09-16)
PROC: 30233N1 Transfusion of Nonautologous Red Blood Cells into Peripheral Vein, Percutaneous Approach (ICD-10-PCS; 2016-09-18)
DX: A41.9 Sepsis, unspecified organism (principal); R65.21 Severe sepsis with septic shock; J96.01 Acute respiratory failure with hypoxia; I21.4 Non-ST elevation (NSTEMI) myocardial infarction; R57.0 Cardiogenic shock; N17.9 Acute kidney failure, unspecified; D62 Acute posthemorrhagic anemia; I44.1 Atrioventricular block, second degree; E44.0 Moderate protein-calorie malnutrition; R64 Cachexia; E87.2 Acidosis; Z51.5 Encounter for palliative care; Z68.21 Body mass index [BMI] 21.0-21.9, adult; R62.7 Adult failure to thrive; C44.629 Squamous cell carcinoma of skin of left upper limb, including shoulder; D69.6 Thrombocytopenia, unspecified; N18.9 Chronic kidney disease, unspecified; I12.9 Hypertensive chronic kidney disease with stage 1 through stage 4 chronic kidney disease, or unspecified chronic kidney disease; E87.5 Hyperkalemia; Z66 Do not resuscitate; I25.10 Atherosclerotic heart disease of native coronary artery without angina pectoris; E03.9 Hypothyroidism, unspecified; I72.8 Aneurysm of other specified arteries; R00.1 Bradycardia, unspecified; I70.202 Unspecified atherosclerosis of native arteries of extremities, left leg; Z87.891 Personal history of nicotine dependence
CPT/HCPCS: 31720; 36415; 36600; 71010; 74000; 80048; 80053; 80069; 81001; 82140; 82533; 82550; 82553; 82805; 82962; 83605; 83690; 83735; 83880; 84100; 84132; 84134; 84145; 84439; 84443; 84481; 84484; 85025; 85610; 85730; 86850; 86900; 86901; 86920; 87040; 87493; 87493-59; 87641; 88172; 88173; 88305; 93005; 93926; 94002; 94003; 94640; 94770; 96365; 96367; 99291; A9270-GY; C9113; J0692; J3010; P9016; P9047